=== PATIENT | male | born 1995 | race Caucasian/White ===

== ENCOUNTER 2022-10-24 11:13 | Emergency (ER) | payer OTHER ==
[~2022-10-24] VITALS: Ht 182.9 cm; Wt 94.3 kg
--- NOTE | 2022-10-24 11:18 | NUR ---
pt ambulated to bed 07
[2022-10-24] MEDS ORDERED: methylPREDNISolone SS 125 MG/2 ML VIAL IVP ONE (11:20)
[2022-10-24] MEDS ORDERED: methylPREDNISolone SS 125 MG/2 ML VIAL ONE (11:20)
[2022-10-24] MEDS ORDERED: EPINEPHrine 1 MG/ML AMP IM ONE (11:20)
[2022-10-24] MEDS ORDERED: diphenhydrAMINE 50 MG/ML VIAL IVP ONE (11:20)
[2022-10-24] MEDS ORDERED: FAMOTIDINE 20 MG/2 ML VIAL IVP ONE (11:20)
[2022-10-24] MEDS ORDERED: diphenhydrAMINE 50 MG/ML VIAL ONE (11:21)
[2022-10-24] MEDS ORDERED: FAMOTIDINE 20 MG/2 ML VIAL ONE (11:21)
[2022-10-24 11:22] VITALS: BP 152/78
--- NOTE | 2022-10-24 11:24 | NUR ---
DR LEGGETT AT BEDSIDE.
--- NOTE | 2022-10-24 11:32 | NUR ---
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 pt states he had acai bowl and requested without nuts, pt states food may have still contained nuts. mouth appears red with swelling, decreased voice. pt denies pain, sob, cp. pmh: denies allergy: tree nuts, cashews med: denies
--- NOTE | 2022-10-24 11:44 | NUR ---
DR LEGGETT AT BEDSIDE.
[2022-10-24] MEDS ORDERED: EPIN1KIT31 IM (13:02)
[2022-10-24 13:13] VITALS: BP 122/68
--- NOTE | 2022-10-24 13:13 | NUR ---
Patient discharged with v/s stable. Written and verbal after care instructions given and explained. Patient alert, oriented and verbalized understanding of instructions. Ambulatory with steady gait. All questions addressed prior to discharge. ID band removed. Patient advised to follow up with PMD. Rx of epipen given. Patient educated on indication of medication including possible reaction and side effects. Opportunity to ask questions provided and answered.
== END 2022-10-24 13:13 | disposition home or self-care (01) ==
LOC: MED 11:13
DX: T78.1XXA Other adverse food reactions, not elsewhere classified, initial encounter (principal); R21 Rash and other nonspecific skin eruption; Z90.49 Acquired absence of other specified parts of digestive tract; Z91.018 Allergy to other foods; X58.XXXA Exposure to other specified factors, initial encounter
CPT/HCPCS: 96374; 96375; 99284; J0171; J1200; J2930; J3490